=== PATIENT | male | born 1950 | race Caucasian/White ===

== ENCOUNTER 2018-02-04 14:50 | Outpatient (CLI) | payer MEDICARE, MEDICAID ==
--- NOTE | 2018-02-04 16:35 | MRI ---
MRI OF THE CERVICAL SPINE WITHOUT CONTRAST: 02/04/18 INDICATION: Chronic neck pain for many years. COMPARISON: CT cervical spine dated 12/28/12. FINDINGS: The visualized aspects of the posterior fossa appears within normal limits. There is a partially empt y sella. Bone marrow signal intensity is within normal limits. Spinal alignment is within normal limi ts. At C2-3, there is moderate left and mild right facet joint degenerative change. At C-4, there is a broad based disc osteophyte complex with uncovertebral hypertrophy and facet joint degenerative changes inducing mild right and moderate to severe left neural foraminal narrowing. The re is also mild central canal narrowing at this level without evidence of cord compression. At C4-5, there is uncovertebral hypertrophy and facet joint degenerative change inducing moderate to severe left and moderate right neural foraminal narrowing. There is mild central canal narrowing at t his level. At C5-6, there is a broad based bulge asymmetric to the right with uncovertebral hypertrophy inducing moderate to severe right and mild to moderate left neural foraminal narrowing. At C6-7, there is a broad based bulge with uncovertebral hypertrophy inducing mild central canal narr owing with mild bilateral neural foraminal narrowing. At C7-T1, there is a broad based bulge inducing mild bilateral neural foraminal narrowing. At T1-T2, there is no appreciable central canal or neural foraminal narrowing. IMPRESSION: 1. Multilevel neural foraminal narrowing as detailed above. 2. Mild central canal narrowing seen at C3-4 and C6-7. 3. Partially empty sella. POS: [facility]
== END 2018-02-04 14:51 | disposition home or self-care (01) ==
LOC: SCSMRI 14:50
PROVIDERS: ATTEND Family Medicine
DX: M54.2 Cervicalgia (principal); G89.29 Other chronic pain; M48.02 Spinal stenosis, cervical region; M99.81 Other biomechanical lesions of cervical region; M99.82 Other biomechanical lesions of thoracic region
CPT/HCPCS: 72141

== ENCOUNTER 2018-08-17 14:24 | Outpatient (CLI) | payer MEDICARE, MEDICAID ==
--- NOTE | 2018-08-17 17:33 | MRI ---
MRI LUMBAR SPINE WITHOUT CONTRAST: Date: 08/17/18 HISTORY: Lumbar radiculopathy. Radicular pain. Low back pain for many years. Pain is worsening. COMPARISON: None. TECHNIQUE: MRI lumbar spine is performed without intravenous Gadolinium administration. Multisequential, multipl tiffanie imaging is performed. FINDINGS: Appropriate T1 marrow signal intensity of the lumbar vertebra. Lumbar spine vertebral body height is maintained. There is no fracture. No significant STIR hyperintensity to suggest edema or ligamentous injury. Symmetric signal intensity of the psoas muscles. T2 hyperintensity of the right and left renal cortic es, likely representing bilateral cortical cysts. Conus medullaris terminates at the T12-L1 level. T12-L1: Adequate disc hydration. No significant central canal stenosis. Foramina are patent. L1-L2: Adequate disc hydration. No significant central canal stenosis. Neural foramina are patent. L2-L3: Adequate disc hydration. No significant central canal stenosis. Foramina are patent. L3-L4: Adequate disc hydration. Mild ligamentum flavum thickening and facet hypertrophy. No signific ant central canal stenosis. Foramina are patent. L4-L5: There is broad based disc bulge with a central disc protrusion. Ligamentum flavum thickening and facet hypertrophy are present. There is moderate central canal stenosis. Mild bilateral foraminal narrowing. L5-S1: Mild to moderate loss of disc space height. Generalized disc bulge without significant stenos is upon the thecal sac. Moderate to severe bilateral foraminal narrowing. IMPRESSION: Degenerative changes of the lumbar spine at L4-L5 and L5-S1. There is moderate central canal stenosis at L4-L5. POS: [facility]
== END 2018-08-17 14:25 | disposition home or self-care (01) ==
LOC: BICMRI 14:24
PROVIDERS: ATTEND Specialist
DX: M47.26 Other spondylosis with radiculopathy, lumbar region (principal); M47.817 Spondylosis without myelopathy or radiculopathy, lumbosacral region; M48.061 Spinal stenosis, lumbar region without neurogenic claudication
CPT/HCPCS: 72148

== ENCOUNTER 2019-08-26 13:20 | Outpatient (CLI) | payer MEDICARE, OTHER ==
--- NOTE | 2019-08-26 15:01 | MRI ---
MRI CERVICAL SPINE WITHOUT CONTRAST: INDICATIONS: Cervical radiculopathy. COMPARISON: MRI cervical spine dated 02/04/2018 FINDINGS: The cervical vertebrae maintain normal height and alignment. Degenerative changes are noted. Anterior osteophytes are seen, most prominent at C4-C5, C5-C6 and C6-C7. Mild anterior wedging at C6 and C7 i s again seen and is stable from the prior exam with prominent anterior osteophytes. Loss of disk spac e at C6-C7 and C7-T1 is unchanged from the prior study. At C2-C3 no significant abnormality. At C3-C4 posterior disk bulge and spondylosis abut the anterior cord. Prominent uncinate hypertrophy is seen bilaterally, producing bilateral foraminal encroachment. Findings at this level are stable fr om prior exam. At C4-C5 mild disk bulge and spondylosis flatten the thecal sac. No significant cord impingement. No significant foraminal stenosis. At C5-C6 mild disk bulge and spondylosis. These changes efface the anterior subarachnoid space. Mild uncinate hypertrophy is present bilaterally, producing bilateral foraminal narrowing, more prominent on the right. At C6-C7 prominent diffuse disk bulge is again seen, similar to the prior study. This abuts the anter ior cord centrally. Uncinate hypertrophy bilaterally produces mild foraminal encroachment. At C7-T1, evidence of a small annular fissure with disk bulge. Anterior subarachnoid space is preserv ed and there is no evidence of significant foraminal stenosis. IMPRESSION: Degenerative changes of the cervical spine. Findings are most pronounced at C6-C7 where a broad-based bulge and spondylitic change impinge on and mildly compress the anterior cord. Changes are also seen at C3-C4, C4-C5 and C5-C6, as described above. POS: [facility]
--- NOTE | 2019-08-26 15:12 | MRI ---
MRI thoracic spine noncontrast: DATE: 08/26/2019 HISTORY: 68-year-old male with ICD-10: "M 54.14, radicular pain of thoracic region, and "upper back pain. COMPARISON: None FINDINGS: Bone marrow signal is diffusely heterogeneous. This is nonspecific, but possibilities include heterog eneous red marrow conversion, versus various marrow infiltrative processes. Vertebral body heights are maintained. There is no bone marrow edema. Conus medullaris terminates at L1. Thoracic spinal cor d is normal in size. No intramedullary signal abnormality. No syrinx. No extrinsic cord compression. Multilevel mild discogenic degenerative changes throughout upper and mid thoracic spine. No significant central spinal canal stenosis at any level. Slightly prominent posterior epidural fat pad. Mild thecal sac stenosis at upper thoracic spine. Mild ligamentum flavum thickening at upper thoracic spine. No obvious pathology of perivertebral spaces identified. Mild-moderate degenerative facet changes bilaterally at T1-T2 and T2-3. Neural foraminal stenosis, moderate on the right at T2-3, mild to moderate on the left at T1-2, and moderate bilaterally at C7-T1. IMPRESSION: 1. Mild thoracic spondylosis, mostly in the upper thoracic spine. 2. No high-grade central spinal canal stenosis or cord compression. 3. Neural foraminal stenosis at upper levels associated with bilateral upper level facet osteoarthros is.
== END 2019-08-26 13:21 | disposition home or self-care (01) ==
LOC: BICMRI 13:20
PROVIDERS: ATTEND Nurse Practitioner Family
DX: M47.24 Other spondylosis with radiculopathy, thoracic region (principal); M48.04 Spinal stenosis, thoracic region; M47.22 Other spondylosis with radiculopathy, cervical region
CPT/HCPCS: 72141; 72146